=== PATIENT | male | born 1985 | race Caucasian/White ===

== ENCOUNTER 2017-07-19 20:47 | Emergency (ER) | payer OTHER ==
[~2017-07-19 20:47] MED LIST: Z.0.NO CURRENT MEDS
[2017-07-19 20:48] VITALS: BP 140/66; PULSE 82; RESP 16; TEMP 98.1; O2SAT 99
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
[2017-07-19] MEDS ORDERED: ROBA500T PO (22:23)
[2017-07-19] MEDS ORDERED: IBUP1TAB7 PO (22:23)
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
[2017-07-19] MEDS ORDERED: KETOROLAC TROMETHAMINE 60 MG/2 ML (IM) VIAL IM ONE (22:30)
[2017-07-19] MEDS ORDERED: ORPHENADRINE INJ 60 MG/2 ML AMP IM ONE (22:30)
== END 2017-07-19 22:52 | disposition home or self-care (01) ==
LOC: NEPK 20:47
DX: S16.1XXA Strain of muscle, fascia and tendon at neck level, initial encounter (principal); S20.211A Contusion of right front wall of thorax, initial encounter; V89.2XXA Person injured in unspecified motor-vehicle accident, traffic, initial encounter
CPT/HCPCS: 71046; 96372; 99284; J1885; J2360